=== PATIENT | female | born 1960 | race Caucasian/White ===

== ENCOUNTER 2016-08-26 10:57 | Emergency (ER) | payer BC, OTHER ==
[~2016-08-26] VITALS: Ht 157.5 cm; Wt 66.0 kg
[~2016-08-26 10:57] MED LIST: ALBU0.086 NEB; AUGM875T PO; BECL0.07 INH
[2016-08-26 11:05] VITALS: BP 134/89; PULSE 78; RESP 16; TEMP 98.6; O2SAT 98
[2016-08-26] MEDS ORDERED: MUPI2%T TOPICAL (11:20)
[2016-08-26] MEDS ORDERED: BECL80AE3 INH (11:20)
[2016-08-26] MEDS ORDERED: FEXO1TAB97 PO (11:20)
[2016-08-26] MEDS ORDERED: CEPH500T PO (11:20)
[2016-08-26] MEDS ORDERED: ALBUAER3 INH (11:20)
[2016-08-26] MEDS ORDERED: FLUT1SPR5 EACH NARE (11:20)
[2016-08-26] MEDS ORDERED: BACT800T5 PO (11:20)
[2016-08-26] MEDS ORDERED: CLIN1CAP6 PO (11:27)
--- NOTE | 2016-08-26 11:29 | PD ---
HPI Chief Complaint: Skin Problem Time Seen by Provider: 11:27 Travel History International Travel<30 days: No Contact w/Intl Traveler<30days: No Traveled to known affect area: No History of Present Illness HPI 56-year-old female presents to the emergency room for evaluation of a wound to the left face that has been present for the past 10 days. States it started off as a small red bump that she thought might be ringworm and Eating larger. Patient went to an urgent care center 5 days ago and was given Bactrim and Keflex. She has been taking them as prescribed. States since then the swelling and redness seemed to have decreased but the red bump developed into a wound last night. It is located right over the left maxillary sinus but patient denies any sinus congestion or drainage. Patient denies any wound drainage. Reports feeling off but denies any objective fever, chills, or vomiting. Last tetanus was 6 years ago. PFSH Past Medical History Asthma: Yes Diminished Hearing: No Immunizations Current: Yes ?: Not Social History Alcohol Use: Yes (occ) Tobacco Use: No (former) Substance Use: No Allergies-Medications (Allergen,Severity, Reaction): Coded Allergies: No Known Allergies (Unverified , 08/26/16) Reported Meds & Prescriptions Reported Meds & Active Scripts Active Clindamycin (Clindamycin HCl) 300 Mg Cap 300 Mg PO Q6H 10 Days Reported Bactroban Topical (Mupirocin) 2 % Cream 1 Applic TOPICAL BID Nayeli-D 24 Hour Allergy (Fexofenadine-Pseudoephedrine ER 24 HR) 180-240 Alo 1 Tab PO DAILY Flonase Allergy Relief Nasal [place] (Fluticasone Nasal [place]) 50 Mcg/Act [place] 50 Mcg EACH NARE BID Cephalexin 500 Mg Tab 500 Mg PO Q6H Bactrim DS (Sulfamethoxazole-Trimethoprim) 800-160 Mg Tab 1 Tab PO BID Qvar Inh (Beclomethasone Dipropionate) 80 Mcg/Act Aero 2 Puff INH DAILY Proair Hfa 8.5 GM Inh (Albuterol Sulfate) 90 Mcg/Act Aer 2 Puff INH Q6H PRN 108 mcg/actuation Review of Systems Except as stated in HPI: all other systems reviewed are Neg Physical Exam Narrative GENERAL: Well-nourished, well-developed female in no acute distress. Afebrile. Ambulatory. SKIN: Warm and dry. There is an indurated area over the left maxillary sinus which measures about 1 cm in diameter. The center of the area is scabbed but there is no fluctuance, pointing, or drainage. There is a zone of inflammation around it but no lymphangitis. HEAD: Normocephalic. EYES: No scleral icterus. No injection or drainage. NECK: Supple, trachea midline. No JVD or lymphadenopathy. Data Data Last Documented VS Vital Signs Date Time Temp Pulse Resp B/P Pulse Ox O2 Delivery O2 Flow Rate FiO2 08/26/16 11:21 16 08/26/16 11:05 98.6 78 134/89 98 Orders Clindamycin Inj (Cleocin Inj) (08/26/16 11:30) Tetanus/Diphtheria Tox Adult (Tetanus/Di (08/26/16 11:30) MDM Medical Decision Making Medical Screen Exam Complete: Yes Emergency Medical Condition: Yes Medical Record Reviewed: Yes Differential Diagnosis Cellulitis versus abscess versus sinusitis Narrative Course 56-year-old female presents to the emergency room for evaluation of lesion over the left maxillary sinus that has been present for the past 9 days but changed its appearance last night. Patient went to an urgent care center 5 days ago and was prescribed Bactrim and Keflex. She has been taking them appropriately. States the redness and swelling have decreased since starting antibiotics but the lesion became scabbed yesterday which concerned her. She denies any sinus symptoms or systemic signs of infection. Patient is well-appearing. Vital signs stable. Lesion is about 1 cm and does not appear to infiltrate sinuses. I had my attending physician assess a patient and he agrees there is no indication for admission at this time. Patient was told to stop Keflex and start clindamycin. Given first dose of IM clindamycin in the emergency room. Told to follow up in 2 days for recheck or return sooner for worsening symptoms. She understands and agrees to this plan. Diagnosis Primary Impression: Facial cellulitis Referrals: Primary Care Physician Patient Instructions: Cellulitis (ED), General Instructions Additional Instructions: Rest and drink plenty of fluids. Take Bactrim and clindamycin as directed, until gone. Stop Keflex. Follow up with a primary care physician, medical chief technician, and/or plastic surgeon. Return to emergency room for worsening symptoms, as discussed. Med/Other Pt SpecificInfo: Prescription(s) given Scripts Clindamycin 300 Mg [id number] Mg PO Q6H 10 Days Ref 0 Prov:Jj Castillo MD 08/26/16 Disposition: 01 DISCHARGE HOME Condition: Stable Vika White Aug 26, 2016 11:29
[2016-08-26] MEDS ORDERED: CLINDAMYCIN PHOS 600 MG/4 ML VIAL IM ONE (11:30)
[2016-08-26] MEDS ORDERED: TETANUS/DIPHTHERIA TOXOID ADULT 0.5 ML VIAL IM ONE (11:30)
== END 2016-08-26 12:20 | disposition home or self-care (01) ==
LOC: PHEFT 10:57
DX: L03.211 Cellulitis of face (principal); Z23 Encounter for immunization; Z87.09 Personal history of other diseases of the respiratory system; Z87.891 Personal history of nicotine dependence
CPT/HCPCS: 90471; 90714; 96372